=== PATIENT | female | born 2000 | race Caucasian/White ===

== ENCOUNTER → 2020-12-12 | Emergency (ER) | payer MEDICAID, OTHER ==
[~2020-12-12] VITALS: Ht 154.9 cm; Wt 45.4 kg
[~2020-12-12] MED LIST: KETOROLAC TROMETH 30 MG/ML 1ML VIAL IV ONE; METHYLERGONOVINE MALEATE 0.2 MG/ML AMP IM ONE; POTASSIUM EFFERVESENT TAB 25 MEQ PO ONE; SODIUM CHLORIDE 0.9% 1,000 ML IV ONE
[2020-12-12 02:25] LABS: Basophils # (auto) 0.1 10 ^3/uL (0-0.2); Basophils % (auto) 0.6 % (0.0-2.0); Eosinophils # (auto) 0.1 10 ^3/uL (0-0.8); Monocytes # (auto) 0.6 10 ^3/uL (0-1.3)
[2020-12-12 02:27] LABS: Eosinophils % (auto) 1.5 % (0.0-7.0); Hematocrit 33.8 % (36.0-46.0); Hemoglobin 10.9 g/dL (12.2-16.2); Lymphocytes % (auto) 34.6 % (10.0-50.0); Mean Corpuscular Hemoglobin 23.9 pg (28.0-32.0); Mean Corpuscular Hgb Conc. 32.2 g/dL (32.0-36.0); Mean Corpuscular Volume 74.2 fL (80.0-100.0); Monocytes % (auto) 7.1 % (0.0-12.0); Neutrophils # (auto) 4.9 10 ^3/uL (1.6-8.6); Neutrophils % (auto) 56.2 % (37.0-80.0); Red Blood Cells 4.55 10^6/uL (4.0-5.20); Red Cell Distribution Width 16.7 % (11.8-14.3); White Blood Cell 8.7 10^3/uL (4.4-10.8)
[2020-12-12 02:32] LABS: Albumin 3.2 g/dL (3.4-5.0); BUN/Creatinine Ratio 7.5; Calcium 8.8 mg/dL (8.5-10.1)
[2020-12-12 02:35] LABS: Bilirubin, Total 0.4 mg/dL (0.2-1.0); Total Protein 7.2 g/dL (6.4-8.2)
[2020-12-12 03:29] LABS: INR 1.05 (0.9-1.15); Partial Thromboplastin Time 26.5 sec (23.6-33.0)
[2020-12-12] MEDS: LACT. RINGERS/OXYTOCIN 20UNITS 1,000 ML IV SCH ×2 (14:46→21:25)
[2020-12-12 22:04] VITALS: BP 140/96
== END | disposition home or self-care (01) ==
LOC: EDBD 01:17 → ER 01:23
DX: O72.2 Delayed and secondary postpartum hemorrhage (principal); Z20.822 Contact with and (suspected) exposure to COVID-19
CPT/HCPCS: 36415; 76856; 80053; 84702; 85025; 85610; 85730; 87426; 96361; 96372; 96374; 99285; J1885; J2210; J2590